=== PATIENT | female | born 1965 | race Caucasian/White ===

== ENCOUNTER 2017-05-03 21:51 | Emergency (ER) | payer MEDICARE, OTHER ==
[~2017-05-03] VITALS: Ht 157.5 cm; Wt 90.5 kg
[~2017-05-03 21:51] MED LIST: CLON1 PO; DEPA250T PO; LAMO150 PO; METH500T3 PO; PROZ20CA11 PO; QUET1TAB66 PO; Z.0.UNKNOWN
[2017-05-03 21:53] VITALS: BP 218/105; PULSE 89; RESP 16; TEMP 97.5; O2SAT 100
[2017-05-04] MEDS ORDERED: LAMI200T PO (00:37)
[2017-05-04] MEDS ORDERED: CLON1 PO (00:37)
[2017-05-04] MEDS ORDERED: ADDE30TA PO (00:37)
[2017-05-04] MEDS ORDERED: PROZ40CA PO (00:37)
[2017-05-04] MEDS ORDERED: SERO200T PO (00:37)
[2017-05-04 00:41] VITALS: BP 121/75; PULSE 75; RESP 18; O2SAT 98
--- NOTE | 2017-05-04 02:19 | RADRPT ---
EXAM DATE/TIME: 05/04/2017 01:06 [place] COMPARISON: No previous studies available for comparison. INDICATIONS : Thrombosis. MEDICAL HISTORY : Right kene pain. SURGICAL HISTORY : Hysterectomy. Lumbar fusion. Bilateral knee surgery. ENCOUNTER: Initial ACUITY: 1 day PAIN SCORE: 10/10 LOCATION: Right leg. TECHNIQUE: Venous ultrasound of the leg was performed from the inguinal ligament to the proximal calf. Real-jodee e, color Doppler and spectral tracing, compression and augmentation techniques were used. FINDINGS: There is normal compressibility of the deep venous system from the inguinal region to the proximal ca lf. No echogenic clot is seen in the lumen of the common femoral, femoral, popliteal, and posterior tibial veins. There is a normal response of the venous system to proximal and distal augmentation an d respiration. CONCLUSION: 1. No evidence of deep venous thrombosis. Claudio Kirby MD on May 04, 2017 at 2:18 Board Certified Radiologist. This report was verified electronically.
--- NOTE | 2017-05-04 02:50 | PD ---
HPI Chief Complaint: Edema Time Seen by Provider: 00:22 Travel History International Travel<30 days: No Contact w/Intl Traveler<30days: No Traveled to known affect area: No History of Present Illness HPI 51 year-old female presents to the emergency department for complaint of swelling of the right lower extremity concerned about DVT. Patient has chronic lower extremity pain and multiple arthritis related issues as well as chronic orthopedic injuries requiring surgical intervention. Patient states more recently over the past 2-3 week she's noticed increased swelling of the right lower extremity this seems greater than the left lower extremity has become concerned about possibly having a blood clot. Patient's had no chest pain no shortness of breath no pleuritic pain and no hemoptysis. Patient also denies any long distance travel protracted bedrest her surgical procedure. Patient does not have family history of DVT. Patient rates pain as 10 over 10 intensity but is taking no medications for this such as acetaminophen or ibuprofen. PFSH Past Medical History Narrative Medical Bipolar disorder, hypertension, sarcoidosis, knee surgery and lumbar spine surgery cervical discectomy and spinal nerve simulator; no tobacco use: Nursing notes reviewed Bipolar Disorder: Yes Diminished Hearing: No Medical other: Yes (SARCOIDOSIS, SIADH) Immunizations Current: Yes ?: Not Past Surgical History Body Medical Devices: SPINAL STIMULATOR Hysterectomy: Yes Joint Replacement: Yes (LEFT KNEE) Other Surgery: Yes (BACK STIM. IMPLANTED) Social History Alcohol Use: No Tobacco Use: No (E CIGS) Substance Use: No Allergies-Medications (Allergen,Severity, Reaction): Coded Allergies: adhesive tape (Verified Allergy, Mild, Rash, 05/03/17) ampicillin (Unverified Allergy, Mild, 05/03/17) metronidazole (Unverified Allergy, Mild, 05/03/17) Reported Meds & Prescriptions Reported Meds & Active Scripts Active Reported Adderall (Amphetamine-Dextroamphetamine) 30 Mg Tab 30 Mg PO BID Avoid late evening doses. Space doses at least 4 to 6 hours if more than once/day dosing. Seroquel (Quetiapine Fumarate) 200 Mg Tab 200 Mg PO HS Klonopin (Clonazepam) 1 Mg Tab 1 Mg PO BID Prozac (Fluoxetine HCl) 40 Mg Cap 40 Mg PO DAILY Lamictal (Lamotrigine) 200 Mg Tab 200 Mg PO BID Review of Systems Except as stated in HPI: all other systems reviewed are Neg General / Constitutional: No: Fever, Chills HENT: No: Congestion Cardiovascular: No: Chest Pain or Discomfort Respiratory: No: Shortness of Breath, Hemoptysis, Pleuritic Pain Gastrointestinal: No: Nausea, Vomiting, Abdominal Pain Genitourinary: No: Decreased Urinary Output, Flank Pain Musculoskeletal: Positive: Edema, Pain, No: Myalgias, Arthralgias Skin: No Rash (right lower extremity right lower extremity) Neurologic: No: Weakness Psychiatric: No: Anxiety Hematologic/Lymphatic: No: Lymph Node Enlargement Physical Exam Narrative GENERAL: Well-developed well-nourished female in no acute distress no respiratory distress SKIN: Warm and dry. HEAD: Normocephalic. EYES: No scleral icterus. No injection or drainage. NECK: Supple, trachea midline. No JVD or lymphadenopathy. CARDIOVASCULAR: Regular rate and rhythm without murmurs, gallops, or rubs. RESPIRATORY: Breath sounds equal bilaterally. No accessory muscle use. GASTROINTESTINAL: Abdomen soft, non-tender, nondistended. MUSCULOSKELETAL: No cyanosis, or lower extremity with mild edema greater than left lower extremity distally neurovascular tendon intact with brisk capillary refill less than 2 seconds dorsalis pedis pulse 2+ to palpation.range of motion of ankle and digits tenderness to palpation along the posterior calf negative Homans sign. BACK: Nontender without obvious deformity. No CVA tenderness. Data Data Last Documented VS Vital Signs Date Time Temp Pulse Resp B/P (MAP) Pulse Ox O2 Delivery O2 Flow Rate FiO2 05/04/17 00:41 75 18 121/75 (90) 98 Room Air 05/03/17 21:53 97.5 Orders Orders Us Leg Venous Doppler (05/04/17 ) Ed Discharge Order (05/04/17 02:44) MDM Medical Decision Making Medical Screen Exam Complete: Yes Emergency Medical Condition: Yes Medical Record Reviewed: Yes Interpretation(s) Vital Signs Date Time Temp Pulse Resp B/P (MAP) Pulse Ox O2 Delivery O2 Flow Rate FiO2 05/04/17 00:41 75 18 121/75 (90) 98 Room Air 05/03/17 21:53 97.5 89 16 218/105 (142) 100 Room Air Last Impressions Lower Extremity Ultrasound 05/04/17 0000 Signed Impressions: Service Date/Time: , May 04, 2017 01:06 - CONCLUSION: 1. No evidence of deep venous thrombosis. Claudio Kirby MD Differential Diagnosis Sprain strain contusion DVT arthritis Roque cyst Narrative Course Ultrasound of right lower extremity ordered Patient waiting on ultrasound Ultrasound performed and per reading radiologist no DVT Blood pressure improved on recheck Patient is desirous of being discharged home is aware that no DVT and will follow-up as outpatient with orthopedist Diagnosis Primary Impression: Right leg pain Referrals: [facility] call for appointment Orthopedist as needed Patient Instructions: General Instructions Additional Instructions: Follow-up with primary care provider and orthopedist as needed May take [id number] ibuprofen/Advil/Motrin per package instructions as tolerated for pain associated with inflammation May take acetaminophen/Tylenol as needed for minor pain Return to the emergency department for any concerns or change in condition Med/Other Pt SpecificInfo: No Meds Exist/No RX given Disposition: 01 DISCHARGE HOME Condition: Stable Rosa Martínez MD May 04, 2017 02:50
[2017-05-04 03:01] VITALS: BP 130/68; PULSE 69; RESP 16; O2SAT 98
== END 2017-05-04 03:18 | disposition home or self-care (01) ==
LOC: NEPC 21:51
DX: M79.604 Pain in right leg (principal); D86.9 Sarcoidosis, unspecified
CPT/HCPCS: 93971; 99284